=== PATIENT | male | born 1985 | race Caucasian/White ===

== ENCOUNTER 2017-10-31 11:48 | Emergency (ER) | payer OTHER ==
[2017-10-31] MEDS ORDERED: NS 1,000 ML IV ONE (12:34)
--- NOTE | 2017-10-31 12:36 | EDPHY ---
H & P Stated Complaint: seizures/from [facility] Time Seen by Provider: 10/31/17 12:28 HPI/ROS: CHIEF COMPLAINT: Witnessed seizure HISTORY OF PRESENT ILLNESS: 32-year-old male with history of seizure disorder has been previously prescribed Dilantin and Depakote which she has not taken in 2 months due to lack of money, arrives from [facility] where he has been for the past 3 days after witnessed seizure today. He denies chronic alcohol use. He is complaining of a mild nonprogressive headache since seizure. This did not precede his seizure. Unknown if hit head or not. Denies incontinence. Denies or trauma. Denies chest pain or trauma. Patient's antiepileptic drug regimen is Depakote 150 mg twice daily, Dilantin 400 mg twice daily Has previously been taking Keppra and Tegretol which he states did not make him feel well. REVIEW OF SYSTEMS: 10 systems reviewed and negative with the exception of the elements mentioned in the history of present illness PAST MEDICAL/SURGICAL HISTORY: Seizure disorder. Off of all antiepileptic drugs for 2 month. no anticoagulant use. SOCIAL HISTORY: Denies chronic alcohol or benzodiazepine use PHYSICAL EXAM 1) GENERAL: Well-developed, well-nourished, alert and oriented person place time events. Appears to be in no acute distress. Answering questions appropriately. 2) HEAD: Normocephalic, atraumatic 3) HEENT: Pupils equal, round, reactive to light bilaterally. Negative Horners. Nasopharynx, oropharynx, clear. No deformity or angulation of nose. No septal hematoma. No rhinorrhea. No oral trauma. No laceration to tongue. Ears bilaterally with normal tympanic membranes. No hemotympanum. No fluid or blood in the external auditory canal. No raccoon eyes. No Gomez sign. Teeth are normally aligned with no gross malocclusion, TMJ bilaterally nontender, facial bones nontender including the zygomatic arch, maxilla mandible. 4) NECK: No cervical collar is on. Posterior cervical spine is nontender, no stepoff, no effusion. Full range of motion which does not elicit any midline cervical spine pain, no posterior midline tenderness, no step-off. 5) LUNGS: Clear to auscultation bilaterally, no wheezes, no rhonchi, no retractions. No obvious signs of trauma. No chest wall pain. No flaring, no grunting. Moving symmetrically. No crepitus. 6) HEART: Regular rate and rhythm, 7) ABDOMEN: No guarding, no rebound, no focal tenderness, no peritoneal signs, no signs of trauma, no ecchymosis 8) MUSCULOSKELETAL: Moving all extremities, no focal areas of tenderness, no obvious trauma. 9) BACK: No midline vertebral tenderness, no fluctuance, no step-off, no obvious trauma, no visual or palpable abnormality. Unable to elicit any pain with palpation of the back. 10) SKIN: No laceration. No abrasion 11) NEURO: Awake, alert, and oriented to person, place and time. Answers questions appropriately. There were no obvious focal neurologic abnormalities. No cerebellar dysfunction. Cranial nerves 2 through to 12 intact. Normal steady gait. Upper and lower extremities bilaterally with strength 5 / 5, reflexes 2+. DIFFERENTIAL DIAGNOSIS: In no particular order including but not limited to medication noncompliance, polysubstance abuse, alcohol withdrawal - Medical/Surgical History Hx Asthma: No Hx Chronic Respiratory Disease: No Hx Diabetes: No Hx Cardiac Disease: No Hx Renal Disease: No Hx Cirrhosis: No Hx Alcoholism: No Hx HIV/AIDS: No Hx Splenectomy or Spleen Trauma: No Other PMH: seizures, IV drug abuse - Social History Smoking Status: Current every day smoker Constitutional: Initial Vital Signs Temperature (C) 36.9 C 10/31/17 11:53 Heart Rate 77 10/31/17 11:53 Respiratory Rate 18 10/31/17 11:53 Blood Pressure 124/72 H 10/31/17 11:53 O2 Sat (%) 99 10/31/17 11:53 O2 Delivery Mode Room Air Allergies/Adverse Reactions: No Known Allergies Allergy (Unverified 10/31/17 13:15) Home Medications: Medication Instructions Recorded Divalproex [Depakote] 150 mg PO BID 14 Days tab 10/31/17 Phenytoin Sodium Extended 400 mg PO BID 14 Days capsule 10/31/17 [Dilantin] Medical Decision Making ED Course/Re-evaluation: I saw this patient independently based on established practice protocols. Serial examinations performed on patient most recently at 2:05 p.m. at which point he sleeping, easily woken, appears comfortable. He has a continued nonfocal exam. He has no evidence of head injury or back injury. I do not think that imaging indicated at this time. He is upset the learned that he is going to be going back to [facility], he is insistent that he is "about to have another seizure any second now" .Care of patient under supervision of secondary supervising physician Dr Krystin Lopez with whom I discussed case. Will administer oral loading dose of valproic acid. Will discharge patient with his prescriptions of Dilantin 400 mg twice daily and Depakote 150 mg twice daily while he is in [facility] encouraged him to follow up with neurology.. - Data Points Laboratory Results: Laboratory Results 10/31/17 12:30 10/31/17 12:30 10/31/17 10/31/17 12:30 12:30 WBC 7.33 10^3/uL 10^3/uL (3.80-9.50) RBC 4.79 10^6/uL 10^6/uL (4.40-6.38) Hgb 13.8 g/dL g/dL (13.7-17.5) Hct 39.1 % L % (40.0-51.0) MCV 81.6 fL fL (81.5-99.8) MCH 28.8 pg pg (27.9-34.1) MCHC 35.3 g/dL g/dL (32.4-36.7) RDW 13.2 % % (11.5-15.2) Plt Count 228 10^3/uL 10^3/uL (150-400) MPV 10.0 fL fL (8.7-11.7) Neut % (Auto) 73.6 % % (39.3-74.2) Lymph % (Auto) 18.1 % % (15.0-45.0) [place] % (Auto) 7.4 % % (4.5-13.0) Eos % (Auto) 0.1 % L % (0.6-7.6) Baso % (Auto) 0.4 % % (0.3-1.7) Nucleat RBC Rel Count 0.0 % % (0.0-0.2) Absolute Neuts (auto) 5.39 10^3/uL 10^3/uL (1.70-6.50) Absolute Lymphs (auto) 1.33 10^3/uL 10^3/uL (1.00-3.00) Absolute Monos (auto) 0.54 10^3/uL 10^3/uL (0.30-0.80) Absolute Eos (auto) 0.01 10^3/uL L 10^3/uL (0.03-0.40) Absolute Basos (auto) 0.03 10^3/uL 10^3/uL (0.02-0.10) Absolute Nucleated RBC 0.00 10^3/uL 10^3/uL (0-0.01) Immature Gran % 0.4 % % (0.0-1.1) Immature Gran # 0.03 10^3/uL 10^3/uL (0.00-0.10) Sodium 136 mEq/L mEq/L (135-145) Potassium 3.5 mEq/L mEq/L (3.3-5.0) Chloride 102 mEq/L mEq/L (97-110) Carbon Dioxide 24 mEq/l mEq/l (22-31) Anion Gap 10 mEq/L mEq/L (8-16) BUN 9 mg/dL mg/dL (7-23) Creatinine 0.6 mg/dL L mg/dL (0.7-1.3) Estimated GFR > 60 Glucose 96 mg/dL mg/dL (70-100) Calcium 9.1 mg/dL mg/dL (8.5-10.4) Creatine Kinase 83 IU/L IU/L (0-224) Ethyl Alcohol < 10 mg/dL mg/dL (0-10) Medications Given: Discontinued Medications Divalproex Sodium (Depakote) 1,000 mg PO EDNOW ONE Stop: 10/31/17 13:01 Last Admin: 10/31/17 13:32 Dose: 1,000 mg Sodium Chloride (Ns) 1,000 mls @ 0 mls/hr IV ONCE ONE PRN Reason: Wide Open Stop: 10/31/17 12:35 Last Admin: 10/31/17 13:13 Dose: 1,000 mls Departure - Departure Disposition: Home, Routine, Self-Care Clinical Impression: Seizure disorder Condition: Good Instructions: Epilepsy (ED) Additional Instructions: Please take your antiepileptic drugs as prescribed. Referrals: Adonis Godwin DO [Doctor of Osteopathy] - As per Instructions Prescriptions: Divalproex [Depakote] 150 mg PO BID 14 Days tab Phenytoin Sodium Extended [Dilantin] 400 mg PO BID 14 Days capsule
[2017-10-31 12:42] LABS: PLATELET COUNT 228 10^3/uL (150-400)
[2017-10-31] MEDS ORDERED: DIVALPROEX NA 500 MG TAB PO ONE (13:00)
[2017-10-31 13:06] LABS: CREATINE KINASE 83 IU/L (0-224)
[2017-10-31 14:50] VITALS: BP 126/65
== END 2017-10-31 15:19 | disposition home or self-care (01) ==
LOC: EDUNIT#
DX: R56.9 Unspecified convulsions (principal); F17.200 Nicotine dependence, unspecified, uncomplicated; Z86.69 Personal history of other diseases of the nervous system and sense organs
CPT/HCPCS: G0480